=== PATIENT | male | born 1940 | race Caucasian/White ===

== ENCOUNTER → 2020-01-27 16:27 | Outpatient (BNVA) | payer MEDICARE, BC, SELFPAY | PROVIDERS: PCP Family Medicine; Visit Provider Urology | DX: R31.0 Gross hematuria (principal); N40.1 Benign prostatic hyperplasia with lower urinary tract symptoms; R35.1 Nocturia | CPT/HCPCS: 81001 ==

== ENCOUNTER → 2020-03-26 08:07 | Outpatient (BNVA) | payer MEDICARE, BC, SELFPAY | PROVIDERS: PCP Family Medicine; Visit Provider Urology | DX: N40.1 Benign prostatic hyperplasia with lower urinary tract symptoms (principal); N39.41 Urge incontinence | CPT/HCPCS: 81001 ==

== ENCOUNTER → 2021-06-04 13:53 | Outpatient (BNVA) | payer MEDICARE, BC, SELFPAY | PROVIDERS: PCP Family Medicine; Visit Provider Urology | DX: N40.1 Benign prostatic hyperplasia with lower urinary tract symptoms (principal) | CPT/HCPCS: 81003 ==

== ENCOUNTER → 2021-09-13 12:38 | Outpatient (BNVA) | payer MEDICARE, BC, SELFPAY | PROVIDERS: PCP Family Medicine; Visit Provider Urology | DX: N40.1 Benign prostatic hyperplasia with lower urinary tract symptoms (principal); R31.0 Gross hematuria | CPT/HCPCS: 81003; 87086; 88112 ==

== ENCOUNTER 2021-11-06 10:42 | Outpatient (CLI) | payer MEDICARE, BC, SELFPAY ==
--- NOTE | 2021-11-06 12:00 | US_ITS ---
WS: [id number] RENAL ULTRASOUND HISTORY: URINARY RETENTION COMPARISON: None available. TECHNIQUE: 2-D and color Doppler imaging of the kidney submitted. Right kidney: 12.7 cm x 5.0 cm x 5.3 cm. Normal echogenicity with no hydronephrosis or mass. Left kidney: 10.2 cm x 5.1 cm x 5.1 cm. Normal echogenicity with no hydronephrosis or mass. Aorta: Normal. Urinary Bladder: Mildly contracted urinary bladder. Mild diffuse wall thickening. Prostate gland demo nstrates mild encroachment into the bladder although not significantly enlarged. There is a small angelo unt of debris within the urinary bladder. US/US renal BI* [id number] IMPRESSION: 1. No renal obstruction or mass. 2. Mild diffuse bladder wall thickening and a small amount of debris.
== END 2021-11-06 10:43 | disposition home or self-care (01) ==
LOC: RAD 10:46
PROVIDERS: PCP Family Medicine; Visit Provider Urology
DX: R33.9 Retention of urine, unspecified (principal)
CPT/HCPCS: 76770; 81003

== ENCOUNTER → 2022-07-15 15:02 | Outpatient (BNVA) | payer MEDICARE, BC, SELFPAY | PROVIDERS: PCP Family Medicine; Visit Provider Urology | DX: N40.1 Benign prostatic hyperplasia with lower urinary tract symptoms (principal); N39.41 Urge incontinence; R33.9 Retention of urine, unspecified | CPT/HCPCS: 51741; 51798; 81003; 99213 ==

== ENCOUNTER 2022-09-18 10:10 | Outpatient (CLI) | payer MEDICARE, BC, SELFPAY ==
--- NOTE | 2022-09-18 10:18 | XRR_ITS ---
PROCEDURE INFORMATION: Exam: XR Chest Exam date and time: 09/18/2022 11:37 AM Age: 81 years old Clinical indication: Dyspnea; Additional info: Dyspnea on exertion/corinna TECHNIQUE: Imaging protocol: Radiologic exam of the chest. Views: 2 views. COMPARISON: CT chest w con* [id number] 08/03/2018 8:43 AM FINDINGS: Lungs: Unremarkable. No consolidation. Pleural spaces: Unremarkable. No pleural effusion. No pneumothorax. Heart/Mediastinum: Unremarkable. No cardiomegaly. Bones/joints: Unremarkable. XR/XR chest 2V* [id number] IMPRESSION: No acute findings.
--- NOTE | 2022-09-18 10:18 | USCV_ITS ---
Matti Gautam Age: 81 Gender: M : 1940 Exam Date: 09/18/2022 10:59 Ordering Phys: Carissa Dsouza MD Technologist: Carl William Exam Location: [facility] – [place] Indication: Dyspnea BP: 120 / 68 HR: 64 Rhythm: Sinus Technical Quality: Adequate MEASUREMENTS (Male / Female) Normal Values 2D ECHO LV Diastolic Diameter PLAX 3.8 cm 4.2 - 5.9 / 3.9 - 5.3 cm LV Systolic Diameter PLAX 2.9 cm IVS Diastolic Thickness 1.0 cm 0.6 - 1.0 / 0.6 - 0.9 cm IVS Systolic Thickness 1.3 cm LVPW Diastolic Thickness 0.8 cm 0.6 - 1.0 / 0.6 - 0.9 cm LVPW Systolic Thickness 1.3 cm LVOT Diameter 2.0 cm LV Ejection Fraction 2D Teich 45.8 % LV Ejection Fraction MOD 2C 53.1 % LV Ejection Fraction 2C AL 53.8 % LA Diameter 3.5 cm LA Width 2.6 cm LA Height 4.7 cm RA Width 3.5 cm RA Height 4.5 cm Aorta at Sinotubular Diameter 2.5 cm IVC Diameter 1.4 cm M-MODE Aortic Annulus Diameter 2.9 cm LA Ao Ratio MM 1.1 MV E Point Septal Separation 0.9 cm DOPPLER AV Peak Velocity 129.0 cm/s LVOT Peak Velocity 95.0 cm/s AV Area Cont Eq vti 2.7 cm squared AV Area Cont Eq pk 2.4 cm squared MV Peak Velocity 103.0 cm/s MV Area PHT 3.7 cm squared Mitral E to A Ratio 0.8 MV E' Velocity 35.0 cm/s Mitral E to MV E' Ratio 9.4 Mitral E to LV E' Lateral Ratio 9.3 Mitral E to LV E' Septal Ratio 9.7 TR Peak Velocity 276.9 cm/s TR Peak Gradient 30.7 mmHg TR Mean Velocity 209.5 cm/s TR Mean Gradient 19.3 mmHg TR Velocity Time Integral 82.8 cm Right Atrial Pressure 3.0 mmHg Pulmonary Artery Systolic Pressu 33.7 mmHg PV Peak Velocity 172.5 cm/s RV Acceleration Time 0.1 s RV Ejection Time 0.3 s RV AcT/ET 0.3 FINDINGS Left Ventricle Normal left ventricular size, systolic function and wall thickness, with no regional wall motion abnormalities. Left ventricular ejection fraction is estimated at 55 %. Normal diastolic function. Right Ventricle Normal right ventricular size and systolic function. Right ventricular systolic pressure 30 mmHg. Right Atrium Normal right atrial size. Left Atrium Normal left atrial size. Mitral Valve Mild mitral annular calcification. Structurally normal mitral valve. No mitral valve stenosis. No mitral valve regurgitation. Aortic Valve Mildly thickened trileaflet aortic valve. No aortic valve stenosis. No aortic valve regurgitation. Tricuspid Valve Structurally normal tricuspid valve. No tricuspid valve stenosis. Trace tricuspid valve regurgitation. Pulmonic Valve Structurally normal pulmonic valve. No pulmonary valve stenosis. No pulmonary valve regurgitation. Pericardium No pericardial effusion. Aorta Normal aorta size at the level of the sinus of valsalva. Mild dilated ascending aorta measured at 41 mm anteroposteriorly IVC Normal IVC dimension with >50% respiratory change of the inferior vena cava. CONCLUSIONS 1. Normal left ventricular size, systolic function and wall thickness, with no regional wall motion abnormalities. Left ventricular ejection fraction is estimated at 55 %. Normal diastolic function. 2. Normal right ventricular size and systolic function. 3. No significant valvular abnormality. 4. Pulmonary artery pressure estimated at 30 mmHg. 5. No prior similar studies to compare. Marilu Emanuel MD (Electronically Signed) Final Date: 22 September 2022 13:47 S
== END 2022-09-18 10:11 | disposition home or self-care (01) ==
LOC: RAD 10:11
PROVIDERS: PCP Family Medicine; Visit Provider Family Medicine
DX: R06.09 Other forms of dyspnea (principal); R60.0 Localized edema
CPT/HCPCS: 71046; 93306